=== PATIENT | male | born 1960 | race Caucasian/White ===

== ENCOUNTER 2017-06-30 09:20 | Emergency (ER) | payer BC ==
--- NOTE | ~2017-06-30 | ER ---
PATIENT'S NAME: UMA CAMACHO [facility] AGE: 56 Y [address] ROOM: [place] [address] LOCATION: [facility] ADMIT DATE: 06/30/2017 ER/Outpatient Report DISCHARGE DATE: 06/30/2017 FAMILY PHYSICIAN: Zaira Collado PA-C ATTENDING PHYSICIAN: Dale Torres CHIEF COMPLAINT: Lip laceration. HISTORY OF PRESENT ILLNESS: Mr. Camacho was trying to avoid a rambunctious cow when he tripped and fell. He struck his face on something, he is not sure what it was, but denies loss of consciousness. He had a lip laceration which he thought he better get taken care of. He also notes that he has some right-sided posterior shoulder discomfort only at the extremes of range of motion and does not want that evaluated any further. He is unsure on his last tetanus shot. No other acute issues. PAST MEDICAL HISTORY: Documented on the record and reviewed by me. SOCIAL HISTORY: Documented on the record and reviewed by me. MEDICATIONS: Documented on the record and reviewed by me. ALLERGIES: DOCUMENTED ON THE RECORD AND REVIEWED BY ME. REVIEW OF SYSTEMS: All systems were reviewed and negative except as noted in the HPI. PHYSICAL EXAMINATION: VITAL SIGNS: Blood pressure 166/89, pulse 56, respiratory rate 16, temperature 95.6, and SpO2 is 95% on room air. Pain 0/10. GENERAL: An age-appropriate male, in no obvious pain or distress. HEENT: Normocephalic and atraumatic. Eyes are PERRL. Oropharynx is clear. Teeth in poor repair. There is a stellate laceration on the lip measuring a total of 2.9 cm in length. There does not appear to be any obvious muscle body involvement. NECK: Supple. Trachea is midline. CHEST: Heart is regular rate and rhythm. No murmurs. LUNGS: Clear to auscultation bilateral with no rhonchi, wheezes, or rales. ABDOMEN: Soft and benign. PATIENT'S NAME: UMA CAMACHO [facility] AGE: 56 Y [address] ROOM: [place] [id number] LOCATION: [facility] ADMIT DATE: 06/30/2017 ER/Outpatient Report DISCHARGE DATE: 06/30/2017 FAMILY PHYSICIAN: Zaira Collado PA-C ATTENDING PHYSICIAN: Dale Torres BACK: Normal to inspection and palpation. EXTREMITIES: Warm and well perfused. No significant limitation with range of motion. No tenderness to palpation of the shoulders. No crepitus. NEUROVASCULAR: Otherwise, neurovascularly intact. SKIN: Grossly unremarkable. LABORATORY DATA AND X-RAYS: None. IMPRESSION: 1. Lip laceration. 2. Shoulder contusion. EMERGENCY DEPARTMENT COURSE: The patient was seen and evaluated as above. We were able to confirm that his tetanus status is not up to date and thus updated him today. He was placed recumbent and ultimately received an anesthesia to the oral cavity with bilateral mental blocks and inferior alveolar blocks using 1% lidocaine without epinephrine, a total of 5 mL was used. The patient had good anesthesia. The area was irrigated copiously and found to be free of any foreign matter. A single deep 6-0 chromic gut suture was used to close the potential space. Subsequently, 9 simple interrupted 6-0 nylon sutures were placed to approximate the skin edges well. Slight edema made this somewhat difficult. The patient will have a good cosmetic result. Wound cares were discussed with the patient. He is to follow up in 3 to 5 days for suture removal by primary care physician. Watch for evidence of infection. All questions were answered, and the patient was discharged in good condition. MD HARRY SOLOMON/modl /[id number] d: 06/30/17 1038 t: 07/07/17 1010, OUTPATIENT REPORT
== END 2017-06-30 10:08 | disposition disaster alternative care site (69) ==
LOC: GACC 09:20
PROC: 0CQ1XZZ Repair Lower Lip, External Approach (ICD-10-PCS; principal; 2017-06-30)
DX: S01.511A Laceration without foreign body of lip, initial encounter (principal); S40.011A Contusion of right shoulder, initial encounter; I10 Essential (primary) hypertension; K21.9 Gastro-esophageal reflux disease without esophagitis; E78.00 Pure hypercholesterolemia, unspecified; Z79.899 Other long term (current) drug therapy; W18.09XA Striking against other object with subsequent fall, initial encounter